=== PATIENT | male | born 1975 | race African-American/Black ===

== ENCOUNTER 2018-06-03 09:13 | Emergency (ER) | payer BC ==
[2018-06-03 09:22] VITALS: BP 129/64; PULSE 69; TEMP 97.6; BMI 28.0
--- NOTE | 2018-06-03 09:46 | PDOC ---
History of Present Illness - General Chief Complaint: Pain Stated Complaint: PAIN Time Seen by Provider: 06/03/18 09:40 History Source: Patient - History of Present Illness Occurred: reports: last week Severity: reports: mild Upper Extremity Pain Location: left: elbow Past History - Past Medical History Allergies/Adverse Reactions: Allergies Allergy/AdvReac Type Severity Reaction Status Date / Time No Known Allergies Allergy Verified 06/03/18 09:14 Home Medications: Ambulatory Orders NK [No Known Home Medication] 06/03/18 - Suicide/Smoking/Psychosocial Hx Smoking History: Never smoked Have you smoked in the past 12 months: No Information on smoking cessation initiated: No Hx Alcohol Use: No Drug/Substance Use Hx: No Review of Systems - Review of Systems Musculoskeletal: Yes: Joint Pain. No: Joint Swelling Neurological: No: Numbness, Tingling, Weakness *Physical Exam - Vital Signs Last Vital Signs Temp Pulse Resp BP Pulse Ox 97.6 F 69 18 129/64 100 06/03/18 09:16 06/03/18 09:16 06/03/18 09:16 06/03/18 09:16 06/03/18 09:16 - Physical Exam General Appearance: Yes: Appropriately Dressed. No: Apparent Distress HEENT: positive: Normal Voice Neck: positive: Supple Extremity: positive: Normal Inspection, Normal Range of Motion. negative: Tender, Swelling Integumentary: positive: Dry, Warm Neurologic: positive: Fully Oriented, Alert, Normal Mood/Affect, Motor Strength 5/5 Moderate Sedation - Procedure Monitoring Vital Signs: Procedure Monitoring Vital Signs Temperature 97.6 F 06/03/18 09:16 Pulse Rate 69 06/03/18 09:16 Respiratory Rate 18 06/03/18 09:16 Blood Pressure 129/64 06/03/18 09:16 O2 Sat by Pulse Oximetry (%) 100 06/03/18 09:16 Medical Decision Making - Medical Decision Making 06/03/18 09:41 42 yo M, no sig hx, here w/ LUE pain s/p lifting weights in gym last week, unable to describe pain, ~6/10, worse w/ flexion of elbow. No sensory changes. Has not taken anything for pain. No fall. Has had similar pain in the past per pt. Flying out to [facility] in several days and wanted to come get checked out See exam LUE strain vs overuse Exam unremarkable Declines pain meds here -dc w/ OTC meds prn and PMD f/u *DC/Admit/Observation/Transfer Diagnosis at time of Disposition: Arm pain Qualifiers: Laterality: left Qualified Code(s): M79.602 - Pain in left arm - Discharge Dispostion Disposition: HOME Condition at time of disposition: Stable - Referrals - Patient Instructions Printed Discharge Instructions: DI for Muscle Strain Additional Instructions: Rest and take farr or tylenol for pain Follow up with your PMD as needed - Post Discharge Activity
== END 2018-06-03 10:02 | disposition home or self-care (01) ==
LOC: JERFT 09:13
DX: M79.602 Pain in left arm (principal)
CPT/HCPCS: 99281-25